=== PATIENT | male | born 1990 | race African-American/Black ===

== ENCOUNTER 2020-11-25 23:33 | Emergency (ER) | payer OTHER, BC, SELFPAY ==
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
[2020-11-25 23:34] VITALS: BP 120/74; PULSE 87; RESP 15; TEMP 36.5; O2SAT 100
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
--- NOTE | 2020-11-26 00:12 | PC.NURSE ---
Report to ESTEPHANIA Lau [facility] ED Charge Nurse.
--- NOTE | 2020-11-26 00:25 | PC.NURSE ---
made contact with [facility] to transfer pt from [facility] to [facility]. [facility] stated they are sending a truck out now from [facility]
[2020-11-26] MEDS: ceFAZolin 2 GM/D5W 50 ML 2 GM/50 ML BAG IVPB (00:30)
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
--- NOTE | 2020-11-26 00:40 | PC.NURSE ---
eye patch applied by MAYA Rodriguez. visual accuity exam not done. pt refused tetanus shot - nervous about IM injection and imminent EMS arrival for transfer.
[2020-11-26 00:44] VITALS: BP 120/76; PULSE 83; RESP 20; TEMP 36.1; O2SAT 99
--- NOTE | 2020-11-26 00:53 | PC.NURSE ---
oren has arrived and is aware that pt is going to [facility] er
--- NOTE | 2020-11-26 01:03 | PC.NURSE ---
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 pt from [place]. no family. Provided with this ED's phone number for discharge and further assistance, as pt has no family/friends in vicinity.
== END 2020-11-26 01:08 | disposition short-term general hospital (02) ==
LOC: ANHED 11-26 00:25
PROVIDERS: Emergency Provider Emergency Medicine
DX: S05.92XA Unspecified injury of left eye and orbit, initial encounter (principal); W22.8XXA Striking against or struck by other objects, initial encounter
CPT/HCPCS: 70486; 90715; 96365; 96367; 99285; J0131; J0690